=== PATIENT | male | born 1950 | race Caucasian/White ===

== ENCOUNTER 2017-04-01 14:17 | Emergency (ER) | payer MEDICARE ==
[~2017-04-01] VITALS: Ht 188 cm; Wt 117.9 kg
[~2017-04-01 14:17] MED LIST: GLYB5TAB3 PO; LISI-334 PO; LOVA20TA2 PO; METF-620 PO
--- NOTE | 2017-04-01 15:32 | PHYS DOC ---
Past Medical History Past Medical History: Diabetes-Type II, High Cholesterol, Hypertension, Other Additional Past Medical Histor: CHRONIC PAIN Past Surgical History: Appendectomy, Other Additional Past Surgical Histo: BACK SURGERY R/T FX BACK, MANY ABD SURGERIES R/ T STAPH INFECTION R/T APPY Alcohol Use: None Drug Use: None Adult General Chief Complaint Chief Complaint: HIP PAIN HPI HPI Patient is a 66 year old male presenting to the emergency department for evaluation of right hip pain that radiates down into his right leg that started yesterday after he was trying to pull a 200 foot hose with his torso twisted and pulling in the opposite direction felt his right hip and back area pop. He said that he was unable to ambulate effectively after that due to the severe pain. Patient says that he has low back issues and has had surgery before in the past and cannot feel his left leg chronically. Patient says that he has no weakness numbness or tingling in his right leg rather it hurts to flex at the hip and extend at the knee. He ambulates with a cane which she is still dealing and he is able to ambulate to the restroom with minimal difficulty. He denies any bowel or bladder incontinence or saddle anesthesia. He thinks this is more his hip as he played football in the past. Patient is in no obvious distress with normal vital signs. Review of Systems Review of Systems Constitutional: Denies fever or chills [] Musculoskeletal: + back pain, joint pain [] Integument: Denies rash or skin lesions [] Neurologic: Denies focal weakness or sensory changes [] Current Medications Current Medications Current Medications Medications (Trade) Dose Ordered Sig/[facility] Start Time Stop Time Status Last Admin Dose Admin Dexamethasone (Decadron) 6 mg 1X STAT 04/01/17 15:03 04/01/17 15:06 DC 04/01/17 15:36 6 MG Ketorolac Tromethamine (Toradol Im) 60 mg 1X ONCE 04/01/17 15:15 04/01/17 15:16 DC 04/01/17 15:37 60 MG Allergies Allergies Allergies Coded Allergies Type Severity Reaction Last Updated Verified No Known Drug Allergies 04/01/17 No Physical Exam Physical Exam Constitutional: Well developed, well nourished, no acute distress, non-toxic appearance. [] Skin: Warm, dry, no erythema, no rash. [] Back: R lumbar paraspinal tenderness, no CVA tenderness. [] Extremities: R buttox painful to palpation, pain radiates to R anterior femur. no edema. [] Neurologic: Alert and oriented X 3, normal motor function, normal sensory function, no focal deficits noted. [] Current Patient Data Vital Signs Vital Signs Date Time Temp Pulse Resp B/P (MAP) Pulse Ox O2 Delivery O2 Flow Rate FiO2 04/01/17 14:55 97.6 65 20 96 Room Air 97.6 EKG EKG [] Radiology/Procedures Radiology/Procedures Lumbar spine 3 views. History: Pain, twisting injury 3 views were taken of the lumbar spine. There is degenerative disc disease at multiple levels with disc space narrowing and spurring. There is no acute fracture. There is a small Schmorl's node at the superior aspect of L3. There is slight depression at the superior aspect of L1 which appears old. Impression: 1. Degenerative changes in the lumbar spine. 2. No acute fracture. DICTATED and SIGNED BY: NEREIDA FIGUEROA MD DATE: 04/01/17 153 Right hip 2 views with one view pelvis. History: Right hip pain Single view was taken of the pelvis with 2 views of the right hip. Pelvis is intact without osseous abnormality. Left hip appears unremarkable on the pelvis film. There is degenerative disc disease in the lower lumbar spine. AP and lateral views of the right hip show no fracture or osseous abnormality. Impression: 1. Negative pelvis. 2. Negative right hip. DICTATED and SIGNED BY: NEREIDA FIGUEROA MD DATE: 04/01/171529 Course & Med Decision Making Course & Med Decision Making Pain seems most consistent with a lumbar radiculopathy in my opinion. Patient has known neurovascular deficits with strong 2+ DP pulse. He feels his leg is swollen although there is no edema on my exam. Given patient appears well with normal vital signs normal neurologic exam he'll be treated supportively as an outpatient with NSAIDs told to follow with his primary care provider for further imaging if necessary and come back to the ED sooner with worsening weakness pain or other general concerns. Dragon Disclaimer Dragon Disclaimer This electronic medical record was generated, in whole or in part, using a voice recognition dictation system. Departure Departure Impression: Primary Impression: Lumbar radiculopathy, acute Additional Impression: Back pain Disposition: HOME, SELF-CARE Condition: GOOD Referrals: NO PCP (PCP) Patient Instructions: Lumbosacral Radiculopathy Additional Instructions: TAKE 400MG OF IBUPROFEN EVERY 6 HOURS AND THE NORCO FOR THE BREAKTHROUGH PAIN. FOLLOW WITH YOUR DOCTOR LATER THIS WEEK. THANK YOU! Problem Qualifiers URIEL MARTINEZ DO Apr 01, 2017 15:32
[2017-04-01] MEDS: DEXAMETHASONE 4 MG TABLET PO STA (15:36)
--- NOTE | 2017-04-01 15:36 | RAD ---
Lumbar spine 3 views. History: Pain, twisting injury 3 views were taken of the lumbar spine. There is degenerative disc disease at multiple levels with disc space narrowing and spurring. There is no acute fracture. There is a small Schmorl's node at the superior aspect of L3. There is slight depression at the superior aspect of L1 which appears old. Impression: 1. Degenerative changes in the lumbar spine. 2. No acute fracture.
[2017-04-01] MEDS: KETOROLAC 60 MG/2 ML INJ. IM ONE (15:37)
[2017-04-01 15:57] VITALS: BP 195/88
== END 2017-04-01 15:58 | disposition home or self-care (01) ==
LOC: ER 14:17
DX: M54.16 Radiculopathy, lumbar region (principal); M25.551 Pain in right hip; E11.9 Type 2 diabetes mellitus without complications; E78.00 Pure hypercholesterolemia, unspecified; G89.29 Other chronic pain; I10 Essential (primary) hypertension; Z90.49 Acquired absence of other specified parts of digestive tract
CPT/HCPCS: 72100; 73502; 96372; 99284; J1885; J8540

== ENCOUNTER 2018-06-09 11:34 | Emergency (ER) | payer BC, MEDICARE ==
[~2018-06-09] VITALS: Ht 190.5 cm; Wt 113.4 kg
[~2018-06-09 11:34] MED LIST changes: -METF-620 PO; +METF10007 PO
[2018-06-09 11:48] VITALS: BP 138/69
[2018-06-09] MEDS: HYDROcodone/APAP 7.5/325MG 1 TAB TABLET PO ONE (12:56)
[2018-06-09] MEDS ORDERED: DIAZ5TAB PO (12:56)
--- NOTE | 2018-06-09 12:56 | PHYS DOC ---
Past Medical History Past Medical History: Diabetes-Type II, High Cholesterol, Hypertension, Other Additional Past Medical Histor: CHRONIC PAIN Past Surgical History: Appendectomy, Other Additional Past Surgical Histo: BACK SURGERY R/T FX BACK, MANY ABD SURGERIES R/ T STAPH INFECTION R/T APPY Alcohol Use: None Drug Use: None Adult General Chief Complaint Chief Complaint: BACK PAIN OR INJURY HPI HPI Patient is a 67 year old male with history of diabetes type 2, hypertension, high cholesterol, who presents today complaining of 9 out of 10 left mid back pain that began yesterday while splitting firewood. Patient states he believes he strained his back. Denies any pain radiating to bilateral lower extremities. Denies any loss of bowel bladder function. Patient states he has done to his back last year around the same time. He states he had to receive Novocain and cortisone injection in his back. He states he currently cannot follow-up with the pain clinic because the last time he saw them they changed him over 3000 dollars. Review of Systems Review of Systems Constitutional: Denies fever or chills [] GI: Denies abdominal pain, nausea, vomiting, bloody stools or diarrhea [] : Denies dysuria or hematuria [] Musculoskeletal: Reports mid back pain Integument: Denies rash or skin lesions [] Neurologic: Denies headache, focal weakness or sensory changes [] All other systems were reviewed and found to be within normal limits, except as documented in this note. Current Medications Current Medications Current Medications Medications (Trade) Dose Ordered Sig/[facility] Start Time Stop Time Status Last Admin Dose Admin Acetaminophen/ Hydrocodone Bitart (Lortab 7.5/325) 2 tab 1X ONCE 06/09/18 12:45 06/09/18 12:46 DC 06/09/18 12:56 2 TAB Ketorolac Tromethamine (Toradol Im) 60 mg 1X ONCE 06/09/18 12:45 06/09/18 12:46 DC 06/09/18 12:57 60 MG Methylprednisolone Sodium Succinate (SOLU-Medrol 125MG VIAL) 125 mg 1X ONCE 06/09/18 12:45 06/09/18 12:46 DC 06/09/18 12:57 125 MG Allergies Allergies Allergies Coded Allergies Type Severity Reaction Last Updated Verified No Known Drug Allergies 04/01/17 No Physical Exam Physical Exam Constitutional: Well developed, well nourished, no acute distress, non-toxic appearance. [] Abdomen: Bowel sounds normal, soft, no tenderness, no masses, no pulsatile masses. [] Skin: Warm, dry, no erythema, no rash. [] Back: Diffuse paraspinal muscle tenderness to the left wrist sprain, no midline thoracic spine tenderness, no CVA tenderness. [] Extremities: No tenderness, no cyanosis, no clubbing, ROM intact, no edema. [] Neurologic: Alert and oriented X 3, normal motor function, normal sensory function, no focal deficits noted. [] Psychologic: Affect normal, judgement normal, mood normal. [] Current Patient Data Vital Signs Vital Signs Date Time Temp Pulse Resp B/P (MAP) Pulse Ox O2 Delivery O2 Flow Rate FiO2 06/09/18 11:48 97.7 75 18 138/69 (92) 95 Room Air 97.7 EKG EKG [] Radiology/Procedures Radiology/Procedures [] Course & Med Decision Making Course & Med Decision Making Pertinent Labs and Imaging studies reviewed. (See chart for details) This is a 67-year-old male patient presenting to the ED today with thoracic muscle strain from [employer] yesterday. No cauda equina syndrome. Patient was requesting Novocain and cortisone injection to his back. Informed him we typically don't do injections to the back. Offered him Solu-Medrol IM. He was discharged to home. He has a prescription for no cold at his pharmacy. Instructed to apply heat to the area. Follow-up with PCP in 1-2 weeks. Given prescription for cyclobenzaprine. Dragon Disclaimer Dragon Disclaimer This electronic medical record was generated, in whole or in part, using a voice recognition dictation system. Departure Departure Impression: Primary Impression: Thoracic sprain Disposition: HOME, SELF-CARE Condition: STABLE Referrals: SYD GONZALEZ (PCP) follow up in one week GUNJAN BLANC MD follow up in 1-2 weeks Patient Instructions: Thoracic Strain, [id number] Additional Instructions: You were evaluated in the emergency room for thoracic sprain. Please follow-up with the provided pain clinic doctor for joint injection. You can also follow- up with your own primary care doctor and see if they do any injections for pain. Scripts Diazepam (VALIUM) 5 Mg Tablet 5 MG PO TID, #15 TAB Prov: MUTUNGA,DAWOOD CARPET TECHNICIAN 06/09/18 Attending Signature Attending Signature I have reviewed the PA/[employer] KEY HOLDER's note and plan of care. I was available for consultation as needed during the patient's visit in the emergency department. I agree with the clinical impression, plan, and disposition. DAWOOD KENNY APRN Jun 09, 2018 12:56 KHLOE LANCASTER DO Jun 12, 2018 19:47
[2018-06-09] MEDS: methylPREDNISolone SOD SUCC PF 125 MG/2 ML VIAL. IM ONE (12:57)
[2018-06-09] MEDS: KETOROLAC 60 MG/2 ML INJ. IM ONE (12:57)
== END 2018-06-09 13:22 | disposition home or self-care (01) ==
LOC: ER 11:34
DX: S23.3XXA Sprain of ligaments of thoracic spine, initial encounter (principal); G89.29 Other chronic pain; E11.9 Type 2 diabetes mellitus without complications; E78.00 Pure hypercholesterolemia, unspecified; I10 Essential (primary) hypertension; Z90.89 Acquired absence of other organs; Z98.890 Other specified postprocedural states; X50.9XXA Other and unspecified overexertion or strenuous movements or postures, initial encounter; Y93.89 Activity, other specified; Y92.89 Other specified places as the place of occurrence of the external cause; Y99.8 Other external cause status
CPT/HCPCS: 96372; 99284; J1885; J2930; 99283-25